=== PATIENT | male | born 1940 | race Hispanic/Latino ===

== ENCOUNTER 2019-10-27 16:09 | Outpatient (CLI) | payer MEDICARE ==
--- NOTE | 2019-10-27 16:50 | XRay Report ---
RIGHT RIBS 5 VIEWS INDICATION / CLINICAL INFORMATION: RIB PAIN ON RIGHT SIDE. COMPARISON: None available. FINDINGS: RIBS: No acute, displaced fracture or other acute abnormality. LUNGS: No acute findings. No pneumothorax. Signer Name: Hue Umanzor MD Signed: 10/27/2019 4:46 PM Workstation Name: [id number]
== END 2019-10-27 16:10 | disposition home or self-care (01) ==
LOC: SPVIMAG 16:09
PROVIDERS: ATTEND Internal Medicine
DX: R07.81 Pleurodynia (principal)